=== PATIENT | female | born 1955 | race Caucasian/White ===

== ENCOUNTER → 2019-08-15 | Emergency (ER) | payer OTHER ==
[~2019-08-15] VITALS: Ht 162.6 cm; Wt 65.8 kg
== END | disposition left against medical advice (07) ==
LOC: ER 16:39
DX: S68.110A Complete traumatic metacarpophalangeal amputation of right index finger, initial encounter (principal); W23.0XXA Caught, crushed, jammed, or pinched between moving objects, initial encounter; Y93.89 Activity, other specified; Y92.814 Boat as the place of occurrence of the external cause; Y99.8 Other external cause status